=== PATIENT | male | born 1970 | race Caucasian/White ===

== ENCOUNTER 2025-03-16 13:42 | Emergency (ER) | payer OTHER, SELFPAY ==
[2025-03-16 14:01] VITALS: BP 121/80; PULSE 95; RESP 16; TEMP 37.1; O2SAT 99
--- NOTE | 2025-03-16 14:09 | ED.EAR ---
HPI - Ear Problem General Chief complaint: Ear Stated complaint: EAR CLOGGED Time Seen by Provider: 03/16/25 14:09 Source: patient Mode of arrival: ambulatory Limitations: no limitations History of Present Illness HPI Narrative: 54-year-old male presents with complaint left ear having a clogged sensation, decreased hearing, intermittent pain. Patient reports ear irritation for the past several weeks. After flying this week symptoms are worse. History inner and external ear infections. All systems reviewed and negative except as noted above. Related Data Allergies Allergy/AdvReac Type Severity Reaction Status Date / Time ciprofloxacin (From Cipro) Allergy Swelling Verified 03/16/25 14:24 Review of Systems Review of Systems: CONSTITUTIONAL: Denies fever, chills, or sweats. EYES: Denies visual changes, redness, or discharge. ENT: Denies rhinorrhea, congestion, sore throat. Reports left ear pain, decreased hearing CARDIOVASCULAR: Denies chest pain, palpitations, or edema. RESPIRATORY: Denies cough or dyspnea. GASTROINTESTINAL: Denies abdominal pain, nausea, vomiting, or diarrhea. GENITOURINARY: Denies dysuria or hematuria. SKIN: Denies rash or itching. MUSCULOSKELETAL: Denies back pain, joint pain, or myalgia. NEUROLOGIC: Denies headache, numbness, or weakness. PSYCHIATRIC: Denies anxiety or depression. All other systems reviewed are negative, except as documented in HPI. PMFSH Comments At time of signature, agree with nursing past medical, surgical, social and family history. There is no relevant family history pertinent to the presenting complaint. Exam Narrative: GENERAL: This is a well-nourished, well-developed patient, in no apparent distress. HEAD: normocephalic, atraumatic. EYES: PERRL. Sclera clear/white. Vision is grossly intact. EARS: External ears normal, right auditory canal clear and without drainage, left ear canal is erythematous with mild swelling. Right TM is normal. Left TM erythematous retracted purulence. No perforation bilaterally. Hearing grossly intact. NOSE: External nose normal with no obvious nasal discharge, nares without redness, no rhinorrhea. THROAT: Mucous membranes moist, posterior pharynx clear. NECK: Neck supple, non-tender without lymphadenopathy, masses or thyromegaly. CARDIOVASCULAR: Regular rate and rhythm without murmurs, gallops, or rubs. RESPIRATORY: Clear to auscultation. Breath sounds equal bilaterally. No wheezes, rales, or rhonchi. SKIN: warm, Dry, intact with no suspicious lesions or rash, good texture and turgor. NEURO: awake, alert, and oriented to person, place and time. There were no obvious focal neurologic abnormalities. EXTREMITIES: No joint tenderness, effusion, or edema noted. Course Course Level of Care: Express Care Visit Vital Signs Vital signs: Vital Signs Temperature 37.1 C 03/16/25 14:01 Pulse Rate 95 03/16/25 14:01 Respiratory Rate 16 03/16/25 14:01 Blood Pressure 121/80 03/16/25 14:01 Pulse Oximetry 99 03/16/25 14:01 Oxygen Delivery Room Air 03/16/25 14:01 Temperature 37.1 C 03/16/25 14:01 Pulse Rate 95 03/16/25 14:01 Respiratory Rate 16 03/16/25 14:01 Blood Pressure 121/80 03/16/25 14:01 Pulse Oximetry 99 03/16/25 14:01 Oxygen Delivery Room Air 03/16/25 14:01 Reviewed Medical Decision Making MDM Narrative Medical decision making narrative: Will treat left otitis media and left otitis externa with topical antibiotic and oral antibiotic. Patient agrees with plan of care. Patient is well-appearing, nontoxic. Vital Signs Vital Signs: Vital Signs Temperature 37.1 C 03/16/25 14:01 Pulse Rate 95 03/16/25 14:01 Respiratory Rate 16 03/16/25 14:01 Blood Pressure 121/80 03/16/25 14:01 Pulse Oximetry 99 03/16/25 14:01 Oxygen Delivery Room Air 03/16/25 14:01 Temperature 37.1 C 03/16/25 14:01 Pulse Rate 95 03/16/25 14:01 Respiratory Rate 16 03/16/25 14:01 Blood Pressure 121/80 03/16/25 14:01 Pulse Oximetry 99 03/16/25 14:01 Oxygen Delivery Room Air 03/16/25 14:01 Discharge Plan Discharge Clinical Impression: Left otitis externa, Acute left otitis media Patient Disposition: Home Condition: Stable Instructions: Antibiotic Form, Swimmer's Ear (ED), Ear Infection (ED) Additional Instructions: Take antibiotic as prescribed until gone. Place antibiotic ear drops twice a day for 1 week. Take [id number] Claritin D as directed on packaging. Follow-up with your doctor if symptoms are not improving. Patient Language: Pakistani Prescriptions: New amoxicillin-pot clavulanate 875-125 mg tablet 1 tablet PO Q12H 10 Days Qty: 20 0RF [id number] 3.5-10,000-1 mg/mL-unit/mL-% drops,suspension 3 drp LEFT EAR Q8H 7 Days Qty: 10 0RF Follow-up/Referrals: PHYSICIAN,[facility]YING [facility] [facility]ER [Primary Care Provider] - Time of Disposition: 14:18
== END 2025-03-16 14:26 | disposition home or self-care (01) ==
PROVIDERS: Emergency Provider Nurse Practitioner Family
DX: H60.92 Unspecified otitis externa, left ear (principal); H66.92 Otitis media, unspecified, left ear
CPT/HCPCS: 99203; G0463